=== PATIENT | male | born 1950 | race Caucasian/White ===

== ENCOUNTER 2025-06-06 13:27 | Emergency (ER) | payer OTHER, MEDICARE ==
[~2025-06-06] VITALS: Ht 185.4 cm; Wt 88.0 kg
[2025-06-06] MEDS ORDERED: LISINOPRIL10 MG PO (13:45)
[2025-06-06] MEDS ORDERED: COREG6.25 MG PO (13:45)
[2025-06-06] MEDS ORDERED: PLAVIX75 MG PO (13:45)
[2025-06-06] MEDS ORDERED: METFORMIN HCL500 M2 PO (13:46)
[2025-06-06] MEDS ORDERED: HYDROCODON-ACE1 EA10 PO (14:26)
[2025-06-06] MEDS ORDERED: ACETAMINOPHEN 325 MG TAB PO ONE (14:30)
[2025-06-06 14:45] VITALS: BP 174/77
== END 2025-06-06 14:45 | disposition home or self-care (01) ==
LOC: ED 13:27
DX: S93.401A Sprain of unspecified ligament of right ankle, initial encounter (principal); X50.1XXA Overexertion from prolonged static or awkward postures, initial encounter; I25.2 Old myocardial infarction; Z79.84 Long term (current) use of oral hypoglycemic drugs; Z79.899 Other long term (current) drug therapy
CPT/HCPCS: 73610; 99283; A9270